=== PATIENT | female | born 1955 | race Caucasian/White ===

== ENCOUNTER 2019-05-03 12:56 | Day surgery (SDC) | payer OTHER ==
[~2019-05-03] VITALS: Ht 167.6 cm; Wt 63.6 kg
[~2019-05-03 12:56] MED LIST: ALEN70 PO; ALPR.25; ALPR.5 PO; AMIT10 PO; AMPYRA PO; ASPI81EC PO; BACL20; BACL20 PO; CARI350 PO; CLON.2 PO; COPAXONE SQ; CYCL10 PO; DIAZ10 PO; DIAZ5 PO; DICL75ER; DULO60 PO; ESCI10; GABA300 PO; HYDACE10 PO; HYDACE10B PO; HYDMOR2 PO; INTE30I; INTE30I SC; LAMO25; LAMO25 PO; LEVSOD25 PO; LEVSOD50 PO; MEDICAL MARIJUANA; METH5; MODA200 PO; MORP15ER; MORP15ER PO; MORP30ER PO; OMEP20ER PO; PILO5 PO; POLY17UD PO; PRAM.5 PO; PRED10 PO; PRED5 PO; QUET200 PO; RANI150; RANI150 PO; SOLUMEDROL; TECFIDERA240 MG PO; TRAZ100; TRAZ100 PO; TRAZ150T57 PO; TRIAOIA; [UNRECOGNIZED DRUG - OTHER]; [UNRECOGNIZED DRUG - OTHER]
[2019-05-03] MEDS ORDERED: MODA200 PO (13:29)
[2019-05-03] MEDS ORDERED: METHI10 PO (13:30)
[2019-05-03] MEDS ORDERED: PREG150 PO (13:30)
== END 2019-05-03 15:09 | disposition home or self-care (01) ==
LOC: ORSCSDS 12:56
PROVIDERS: Surgery
PROC: 0DBM8ZX Excision of Descending Colon, Via Natural or Artificial Opening Endoscopic, Diagnostic (ICD-10-PCS; principal; 2019-05-03 14:15)
DX: Z12.11 Encounter for screening for malignant neoplasm of colon (principal); Z86.010 Personal history of colon polyps; D12.4 Benign neoplasm of descending colon; K57.30 Diverticulosis of large intestine without perforation or abscess without bleeding; G35 Multiple sclerosis; E03.9 Hypothyroidism, unspecified; F17.210 Nicotine dependence, cigarettes, uncomplicated; Z79.899 Other long term (current) drug therapy
CPT/HCPCS: 88305; J2704; J7120

== ENCOUNTER → 2021-05-08 | Outpatient (CLI) | payer OTHER ==
[~2021-05-08] MED LIST changes: +ALBU90OI INH; +AZIT250 PO; +BENZ100A PO; +DELTASONE20 MG PO; -DIAZ10 PO; +DULO30 PO; +FLUT.05NI; +GUAI600T33 PO; +IPRATROPIUM 0.03%; +METHI10 PO; +MIRALAX17 GM PO; -MODA200 PO; +MODAFINIL100 MG PO; +PREG150 PO; +VITAMIN D21250 MC1 PO; +[UNRECOGNIZED DRUG - OTHER] PO
[2021-05-08 15:56] LABS: Free Thyroxine 0.78 ng/dL (0.70-1.60); Thyroid Stimulating Hormone 1.23 uIU/mL (0.360-4.800); Triiodothyronine, Free 1.9 pg/mL (2.18-3.98)
== END | disposition home or self-care (01) ==
LOC: OLS 13:04 → LAB SHORT 13:04
PROVIDERS: Internal Medicine Endocrinology, Diabetes & Metabolism
DX: E05.90 Thyrotoxicosis, unspecified without thyrotoxic crisis or storm (principal)
CPT/HCPCS: 36415; 84439; 84443; 84481

== ENCOUNTER 2021-12-27 20:14 | Emergency (ER) | payer OTHER ==
[~2021-12-27] VITALS: Ht 167.6 cm; Wt 78.5 kg
[2021-12-28] MEDS ORDERED: HYDR1TAB94 PO (00:30)
== END 2021-12-28 01:10 | disposition home or self-care (01) ==
LOC: ER 20:14
DX: S09.90XA Unspecified injury of head, initial encounter (principal); G35 Multiple sclerosis; J44.9 Chronic obstructive pulmonary disease, unspecified; Z72.0 Tobacco use; Z79.899 Other long term (current) drug therapy; Z79.52 Long term (current) use of systemic steroids; W01.198A Fall on same level from slipping, tripping and stumbling with subsequent striking against other object, initial encounter; Y92.009 Unspecified place in unspecified non-institutional (private) residence as the place of occurrence of the external cause
CPT/HCPCS: 70450; 72125; 93005; 93010; J2405; J3010

== ENCOUNTER → 2023-09-15 | Outpatient (CLI) | payer OTHER ==
[~2023-09-15] MED LIST changes: +HYDR1TAB94 PO
[2023-09-16 12:25] LABS: Candida species (DNA Probe) Negative (NEGATIVE); G. vaginalis (DNA Probe) Positive (NEGATIVE); T. vaginalis (DNA Probe) Negative (NEGATIVE)
[2023-09-19 20:44] LABS: APTIMA MEDIA TYPE Unisex Swab; C. TRACHOMATIS BY TMA Negative (Negative); N. GONORRHOEAE BY TMA Negative (Negative); SPECIMEN SOURCE Not Provided
== END ==
LOC: LAB 17:59 → LAB SHORT 17:59
PROVIDERS: Family Medicine
DX: N89.8 Other specified noninflammatory disorders of vagina (principal)
CPT/HCPCS: 87480; 87510; 87660